=== PATIENT | male | born 1945 | race African-American/Black ===

== ENCOUNTER 2018-02-09 09:43 | Emergency (ER) | END 2018-02-09 11:48 | disposition home or self-care (01) ==

== ENCOUNTER 2018-09-17 09:24 | Emergency (ER) | payer MEDICARE, OTHER ==
[~2018-09-17] VITALS: Ht 172.7 cm; Wt 144.7 kg
[~2018-09-17 09:24] MED LIST: CYCL10TA7 PO; NAPR-985 PO; UNK HTN MEDS
[2018-09-17 09:25] VITALS: BP 131/63; PULSE 69; RESP 24; Ht 172.7 cm; Wt 144.7 kg
--- NOTE | 2018-09-17 11:02 | ERD ---
ER Documentation Chief Complaint Chief Complaint NECK PAIN X 1 MONTH HPI 73-year-old male presents with right-sided neck pain that is had for over a month intermittently. No injury or trauma. No fever. No vomiting. Pain feels like a stiffness. He is been taking Tylenol at home which does help. ROS All systems reviewed and are negative except as per history of present illness. Medications Home Meds Active Scripts Naproxen* (Naprosyn*) 500 Mg Tablet, 500 MG PO BID, #20 TAB Prov:JOSÉ JC PA-C 09/17/18 Cyclobenzaprine Hcl* (Cyclobenzaprine Hcl*) 10 Mg Tablet, 10 MG PO BID, #15 TAB Prov:JOSÉ JC PA-C 09/17/18 Reported Medications [Unk Htn Meds ] No Conflict Check 01/02/13 Allergies Allergies: Coded Allergies: No Known Allergy (Unverified , 09/17/18) PMhx/Soc History of Surgery: Yes (BYPASS IN 2003 , B/L HIP ) Anesthesia Reaction: No Hx Neurological Disorder: No Hx Respiratory Disorders: No Hx Cardiac Disorders: Yes (HTN , HIGH CHOLESTEROL ) Hx Psychiatric Problems: No Hx Miscellaneous Medical Probl: No Hx Alcohol Use: No Hx Substance Use: No Hx Tobacco Use: No Smoking Status: Never smoker FmHx Family History: No diabetes Physical Exam Vitals Vital Signs Date Temp Pulse Resp B/P (MAP) Pulse Ox O2 O2 Flow FiO2 Time Delivery Rate 09/17/18 98.2 69 24 131/63 94 09:25 (85) Physical Exam Const: No acute distress Head: Atraumatic Eyes: Normal Conjunctiva ENT: Normal External Ears, Nose and Mouth. Neck: Full range of motion. No meningismus. No midline tenderness Resp: Clear to auscultation bilaterally Cardio: Regular rate and rhythm, no murmurs Procedures/MDM 73-year-old male presents with neck pain. X-ray shows degenerative changes. He has no midline tenderness. Prescription for naproxen and Flexeril given. Patient counseled regarding my diagnostic impression and care plan. Prior to discharge all questions answered. Pt agrees with treatment plan and understands strict return precautions. Pt is instructed to follow up with primary care provider within 24-48 hours. Precautionary instructions provided including instructions to return to the ER if not improving or for any worsening or changing symptoms or concerns. Departure Diagnosis: Primary Impression: Cervical strain Condition: Stable Patient Instructions: Neck Pain, No Trauma Additional Instructions: Call your primary care doctor TOMORROW for an appointment during the next 1-2 days.See the doctor sooner or return here if your condition worsens before your appointment time. JOSÉ JC PA-C Sep 17, 2018 11:02
== END 2018-09-17 11:07 | disposition home or self-care (01) ==
LOC: FTE 09:24
DX: S16.1XXA Strain of muscle, fascia and tendon at neck level, initial encounter (principal); I10 Essential (primary) hypertension; X58.XXXA Exposure to other specified factors, initial encounter; Y92.9 Unspecified place or not applicable
CPT/HCPCS: 72040